=== PATIENT | female | born 1985 | race African-American/Black ===

== ENCOUNTER 2016-12-22 11:34 | Emergency (ER) | payer OTHER ==
[~2016-12-22] VITALS: Ht 162.6 cm; Wt 49.9 kg
[~2016-12-22 11:34] MED LIST: APAP500; CLEOCIN HCL150 MG PO; IBUPROFEN 400400 M2 PO; IBUPROFEN 800800 M1; IBUPROFEN 800800 M1 PO; KEFLEX500 MG PO; MOBIC15 MG PO; MOTION RELIEF25 MG PO; NORCO 5-325 TA1 EACH PO; PENICILLIN V P500 MG PO; PENICILLIN VK500 M1 PO; TRAMADOL 50 MG50 MG PO; ULTRAM 50MG TAB50 MG PO; VICODIN
[2016-12-22 12:09] LABS: ABSOLUTE NEUTROPHILS 5.3 thou/uL (1.4-8.2); BASOPHILS 0.7 % (0.0-2.0); EOSINOPHILS 0.5 % (0.0-3.0); HEMATOCRIT 37.4 % (37.0-47.0); HEMOGLOBIN 12.9 gm/dL (12.0-15.0); LYMPHOCYTES 23.4 % (24.0-44.0); MCH 33.2 pg (26.0-34.0); MCHC 34.3 g/dL (28.0-37.0); MCV 96.8 fL (80.0-100.0); PLATELET COUNT 189 thou/uL (150-400); POLYS 67.4 % (36.0-66.0); RBC 3.87 mil/uL (4.20-5.00); RDW 13.3 % (10.5-14.5); WBC 7.9 thou/uL (4.0-11.0)
[2016-12-22 12:10] LABS: MANUAL DIFF NO
[2016-12-22 12:16] LABS: CALCIUM 8.6 mg/dL (8.5-10.1); CREATININE 0.6 mg/dL (0.6-1.3); POTASSIUM 3.4 mmol/L (3.5-5.1)
[2016-12-22 12:21] LABS: ALBUMIN 3.7 g/dL (3.4-5.0); TOTAL BILIRUBIN 0.2 mg/dL (<0.1-1.0); TOTAL PROTEIN 6.6 g/dL (6.4-8.2)
[2016-12-22 12:25] LABS: URINE BILIRUBIN NEGATIVE (Negative); URINE BLOOD NEGATIVE (Negative); URINE COLOR YELLOW; URINE GLUCOSE-RANDOM* NEGATIVE (Negative); URINE KETONES NEGATIVE (Negative); URINE LEUKOCYTES-REFLEX NEGATIVE (Negative); URINE PROTEIN (DIPSTICK) TRACE (Negative); URINE UROBILINOGEN 0.2 E.U./dl (0.2-1.0)
[2016-12-22] MEDS ORDERED: DOXYCYCLINE 10100 MG PO (12:27)
[2016-12-22] MEDS ORDERED: FLAGYL500 MG PO (12:27)
[2016-12-22 13:21] VITALS: BP 127/71
[2016-12-24 15:06] LABS: CHLAMYDIA TRACHOMATIS-PCR Negative (Negative); NEISSERIA GONORRHEA-PCR Negative (Negative)
== END 2016-12-22 13:23 | disposition home or self-care (01) ==
LOC: ER 11:34
PROVIDERS: Physician Assistant
DX: N72 Inflammatory disease of cervix uteri (principal); A59.9 Trichomoniasis, unspecified; F17.210 Nicotine dependence, cigarettes, uncomplicated; Z98.890 Other specified postprocedural states; Z88.6 Allergy status to analgesic agent

== ENCOUNTER 2017-10-10 11:04 | Emergency (ER) | payer OTHER ==
[~2017-10-10] VITALS: Ht 162.6 cm; Wt 49.9 kg
[~2017-10-10 11:04] MED LIST changes: +DOXYCYCLINE 10100 MG PO; +FLAGYL500 MG PO
[2017-10-10] MEDS ORDERED: ZPAK PO (12:14)
[2017-10-10] MEDS ORDERED: TESSALON PERLE100 MG PO (12:14)
[2017-10-10] MEDS ORDERED: GUAIFEN-CODEINE10 ML PO (12:14)
[2018-01-30] MEDS ORDERED: KEFLEX500 M1 PO (03:42)
[2018-01-30] MEDS ORDERED: BACTRIM DS TAB1 EACH PO (03:42)
[2018-05-26] MEDS ORDERED: ZOFRAN ODT4 MG DISSOLVE (16:25)
[2018-05-26] MEDS ORDERED: ANTIVERT25 MG PO (16:25)
== END 2017-10-10 12:45 | disposition home or self-care (01) ==
LOC: ER 11:04
DX: J06.9 Acute upper respiratory infection, unspecified (principal); F17.210 Nicotine dependence, cigarettes, uncomplicated; Z88.6 Allergy status to analgesic agent; Z98.890 Other specified postprocedural states

== ENCOUNTER 2018-04-17 10:44 | Emergency (ER) | payer OTHER ==
[~2018-04-17] VITALS: Ht 162.6 cm; Wt 52.2 kg
--- NOTE | ~2018-04-17 | EKG ---
[place] [address] [facility] [place] [address] ELECTROCARDIOGRAM REPORT Name: ENEIDA COLE [id number] Admission: 04/17/18 Attend Phys: Discharge: 04/17/18 Date of : 85 Report #: [id number] THIS REPORT FOR: //name// 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 : 1985 Requested By: Luis M Merino Order Number: [id number] MD: Aleksandr Thornton Measurements Intervals [place] Rate: 66 P: 36 AL: 166 QRS: -25 QRSD: 96 T: 17 QT: 442 QTc: 464 Interpretive Statements Sinus rhythm Probable left ventricular hypertrophy Compared to ECG 10/22/2014 22:34:00 T-wave abnormality no longer present Electronically Signed On 04-17-2018 16:42:13 CDT by Aleksandr Thornton [email or web address] <ELECTRONICALLY SIGNED> By: Aleksandr Thornton MD, [facility] 04/17/18 1642 1125 1125 Aleksandr Thornton MD, [facility] /EPI
[~2018-04-17 10:44] MED LIST changes: +BACTRIM DS TAB1 EACH PO; +GUAIFEN-CODEINE10 ML PO; +KEFLEX500 M1 PO; +TESSALON PERLE100 MG PO; +ZPAK PO
[2018-04-17] MEDS ORDERED: METHADOSE10 MG PO (10:49)
[2018-04-17 11:18] LABS: ABSOLUTE NEUTROPHILS 6.2 thou/uL (1.4-8.2); BASOPHILS 0.8 % (0.0-2.0); EOSINOPHILS 1.4 % (0.0-3.0); HEMATOCRIT 41.8 % (37.0-47.0); HEMOGLOBIN 14.3 gm/dL (12.0-15.0); LYMPHOCYTES 32.4 % (24.0-44.0); MCH 34.2 pg (26.0-34.0); MCHC 34.2 g/dL (28.0-37.0); MONOCYTES 6.6 % (1.0-8.0); PLATELET COUNT 224 thou/uL (150-400); POLYS 58.8 % (36.0-66.0); RBC 4.18 mil/uL (4.20-5.00); RDW 12.8 % (10.5-14.5); WBC 10.5 thou/uL (4.0-11.0)
[2018-04-17 11:27] LABS: ANION GAP 9 mmol/L (7-16); BUN 10 mg/dL (7-18); CALCIUM 8.9 mg/dL (8.5-10.1); CHLORIDE 106 mmol/L (98-107); CO2 24 mmol/L (21-32); CREATININE 0.6 mg/dL (0.6-1.0); GLUCOSE 88 mg/dL (74-106); SODIUM 139 mmol/L (136-145)
[2018-04-17 11:35] LABS: SGOT 27 U/L (15-37); SGPT 35 U/L (30-65); TOTAL BILIRUBIN 0.4 mg/dL (<0.1-1.0); TOTAL PROTEIN 7.3 g/dL (6.4-8.2); TROPONIN-I <0.06 ng/mL (<0.06)
[2018-04-17 12:20] VITALS: BP 113/70
== END 2018-04-17 12:23 | disposition home or self-care (01) ==
LOC: ER 10:44
PROVIDERS: Emergency Medicine
DX: R51 Headache (principal); T40.3X5A Adverse effect of methadone, initial encounter; F17.210 Nicotine dependence, cigarettes, uncomplicated; Z88.6 Allergy status to analgesic agent; Z98.890 Other specified postprocedural states

== ENCOUNTER 2018-11-12 22:59 | Emergency (ER) | payer OTHER ==
[~2018-11-12] VITALS: Ht 162.6 cm; Wt 54.4 kg
[~2018-11-12 22:59] MED LIST changes: +ANTIVERT25 MG PO; +METHADOSE10 MG PO; +ZOFRAN ODT4 MG DISSOLVE
[2018-11-13] MEDS ORDERED: IBUPROFEN 600600 M1 PO (00:33)
[2018-11-13] MEDS ORDERED: SUDAFED 12-HOU120 MG PO (00:33)
[2018-11-13 00:35] VITALS: BP 91/58
--- NOTE | 2018-11-13 08:16 | EKG ---
[place] [address] [facility] [place] [address] [place] [address] ELECTROCARDIOGRAM REPORT Name: ENEIDA COLE [facility] [id number] Admission: 11/12/18 Attend Phys: Discharge: 11/13/18 Date of : 85 Report #: [id number] THIS REPORT FOR: //name// [facility] ED Test Date: 2018-11-12 Test Time: 23:12:24 Pat Name: ENEIDA COLE Department: Room: Gender: F Indexer: elie : 1985 Requested By: Nolan Drake Order Number: [id number] MD: Aleskandr Thornton Measurements Intervals [place] Rate: 73 P: 23 OR: 159 QRS: -34 QRSD: 89 T: 11 QT: 412 QTc: 454 Interpretive Statements Sinus rhythm Left axis deviation RSR' in V1 or V2, probably normal variant Compared to ECG 04/17/2018 11:25:21 No significant change was found Electronically Signed On 11-13-2018 8:16:35 FINANCE LECTURER by Aleksandr Thornton [email or web address] <ELECTRONICALLY SIGNED> By: Aleksandr Thornton MD, [facility] 11/13/18 0816 11 11 Aleksandr Thornton MD, [facility] /EPI
== END 2018-11-13 00:39 | disposition home or self-care (01) ==
LOC: ER 22:59
PROVIDERS: Emergency Medicine
DX: J02.9 Acute pharyngitis, unspecified (principal); F17.210 Nicotine dependence, cigarettes, uncomplicated; Z98.890 Other specified postprocedural states; Z88.6 Allergy status to analgesic agent

== ENCOUNTER 2019-01-23 17:19 | Emergency (ER) | payer OTHER ==
[~2019-01-23] VITALS: Ht 162.6 cm; Wt 55.8 kg
[~2019-01-23 17:19] MED LIST changes: +IBUPROFEN 600600 M1 PO; +SUDAFED 12-HOU120 MG PO
[2019-01-23] MEDS ORDERED: AMOXIL 875 MG875 M1 PO (19:12)
[2019-01-23 19:34] LABS: ABSOLUTE NEUTROPHILS 5.1 thou/uL (1.4-8.2); BASOPHILS 0.7 % (0.0-2.0); HEMATOCRIT 36.4 % (37.0-47.0); HEMOGLOBIN 12.4 gm/dL (12.0-15.0); LYMPHOCYTES 32.7 % (24.0-44.0); MCH 31.8 pg (26.0-34.0); MCV 93.4 fL (80.0-100.0); MONOCYTES 7.2 % (1.0-8.0); PLATELET COUNT 284 thou/uL (150-400); POLYS 57.4 % (36.0-66.0); RDW 14.2 % (10.5-14.5); WBC 8.9 thou/uL (4.0-11.0)
[2019-01-23 19:44] LABS: CALCIUM 9.1 mg/dL (8.5-10.1); CREATININE 0.5 mg/dL (0.6-1.0); POTASSIUM 3.6 mmol/L (3.5-5.1)
[2019-01-23] MEDS ORDERED: TESSALON PERLE100 MG PO (20:06)
[2019-01-23] MEDS ORDERED: MUCINEX DM ER1 EACH PO (20:06)
[2019-01-23 20:11] VITALS: BP 93/60
== END 2019-01-23 20:12 | disposition home or self-care (01) ==
LOC: ER 17:19
PROVIDERS: Nurse Practitioner Family
DX: R05 Cough (principal); R11.2 Nausea with vomiting, unspecified; Z98.890 Other specified postprocedural states; F17.210 Nicotine dependence, cigarettes, uncomplicated; Z88.8 Allergy status to other drugs, medicaments and biological substances

== ENCOUNTER 2019-08-29 10:53 | Emergency (ER) | payer OTHER ==
[~2019-08-29] VITALS: Ht 162.6 cm; Wt 56.7 kg
[~2019-08-29 10:53] MED LIST changes: +AMOXIL 875 MG875 M1 PO; +MUCINEX DM ER1 EACH PO
[2019-08-29] MEDS ORDERED: NAPROSYN500 MG PO (12:41)
[2019-08-29 13:00] VITALS: BP 108/67
--- NOTE | 2019-08-30 08:12 | EKG ---
[address] [address] ELECTROCARDIOGRAM REPORT Name: ENEIDA COLE [id number] Admission: 08/29/19 Attend Phys: Discharge: 08/29/19 Date of : 85 Report #: [id number] THIS REPORT FOR: //name// [facility] ED Test Date: 2019-08-29 Test Time: 11:09:24 Pat Name: ENEIDA COLE Department: Room: Gender: F Talent Partner: DOUGLAS : 1985 Requested By: Jeannie Bell Order Number: [id number] MD: Simba Iqbal Measurements Intervals [place] Rate: 61 P: 15 DE: 146 QRS: -24 QRSD: 92 T: 2 QT: 437 QTc: 441 Interpretive Statements Sinus rhythm Borderline left axis deviation Borderline T abnormalities, anterior leads Compared to ECG 11/12/2018 23:12:24 T-wave abnormality now present Electronically Signed On 08-30-2019 8:11:48 MEDICAL RECORDS ADMINISTRATOR by Simba Iqbal [email or web address] <ELECTRONICALLY SIGNED> By: Simba Iqbal MD 08/30/19 0811 08 Simba Iqbal MD /ZAK
== END 2019-08-29 14:02 | disposition home or self-care (01) ==
LOC: ER 10:53
DX: R07.89 Other chest pain (principal); F17.210 Nicotine dependence, cigarettes, uncomplicated; Z98.890 Other specified postprocedural states; Z88.8 Allergy status to other drugs, medicaments and biological substances